=== PATIENT | female | born 1955 | race Caucasian/White ===

== ENCOUNTER → 2016-10-28 | Outpatient (CLI) | payer BC ==
[~2016-10-28] MED LIST: SYN25
[2016-10-28 10:45] LABS: ALT/SGPT 20 U/L (12-78); AST/SGOT 13 U/L (15-37); BLOOD UREA NITROGEN 17 mg/dl (7-18); BUN/CREATININE RATIO 17.3 (10-20); CALCIUM 9.6 mg/dl (8.5-10.1); CARBON DIOXIDE 27 mmol/L (21-32); CHLORIDE 101 mmol/L (98-107); CHOLESTEROL 257 mg/dl (0-200); GLUCOSE 136 mg/dl (70-99); POTASSIUM 4.3 mmol/L (3.5-5.1); SODIUM 136 mmol/L (136-145); TRIGLYCERIDES 176 mg/dl (0-150); VERY LOW DENSITY LIPOPROT CALC 35 mg/dl
[2016-10-28 10:55] LABS: ALB/GLOB RATIO 1.3 (0.9-2); ALKALINE PHOSPHATASE 79 U/L (45-117); CHOLESTEROL/HDL RATIO 3.6; HDL CHOLESTEROL 71 mg/dl; LDL CHOLESTEROL CALCULATED 151 mg/dl
[2016-10-28 10:58] LABS: ESTIMATED AVERAGE GLUCOSE 134 mg/dl; HA1C FLAG Normal (Normal)
== END | disposition home or self-care (01) ==
LOC: C.LABBC 07:35
PROVIDERS: ATTEND Family Medicine
DX: I10 Essential (primary) hypertension (principal); E03.9 Hypothyroidism, unspecified; E78.5 Hyperlipidemia, unspecified; E11.9 Type 2 diabetes mellitus without complications

== ENCOUNTER 2024-03-31 14:05 | Inpatient (IN) ==
[2024-03-31 15:39] LABS: Appearance Urine Cloudy (Clear); Bacteria Urine Automated None Seen (None Seen); Bilirubin Urine Negative (Negative); Blood Urine Negative (Negative); Color Urine Yellow; Glucose Urine UA Negative (Negative); Ketones Urine Trace (Negative); Leukocyte Esterase Urine 1+ (Negative); Mucus Urine Present (None Prsent); Nitrite Urine Negative (Negative); Protein Urine Negative (Negative); RBC Urine Automated 0-2 /hpf (0-2); Specific Gravity Urine 1.017 (1.000-1.030); Urobilinogen Urine Negative (Negative); WBC Urine Automated 0-5 /hpf (0-5); pH Urine 5.5 (4.5-7.5)
[2024-03-31 16:23] LABS: Basophils # (auto) 0.02 K/uL (0.00-0.20); Basophils % (auto) 0.2 %; Eosinophils # (auto) 0.04 K/uL (0.00-0.50); Eosinophils % (auto) 0.4 %; Hematocrit (blood only) 34.6 % (37.0-47.0); Hemoglobin 12.4 g/dl (12.0-16.0); Immature Granulocytes # (auto) 0.03 K/uL (0.01-0.20); Immature Granulocytes % (auto) 0.3 %; Lymphocytes # (auto) 1.99 K/uL (1.20-3.40); Lymphocytes % (auto) 21.1 %; Mean Corpuscular Hemoglobin 29.7 pg (25.0-34.0); Mean Corpuscular Hgb Conc 35.8 g/dL (32.0-36.0); Mean Platelet Volume 8.9 fL (9.4-12.4); Monocytes # (auto) 0.61 K/uL (0.11-0.59); Monocytes % (auto) 6.5 %; Neutrophils # (auto) 6.76 K/uL (1.40-6.50); Neutrophils % (auto) 71.5 %; Platelet Count 285 K/uL (130-400); RDW Coefficient of Variation 12.1 % (11.5-14.5); RDW Standard Deviation 36.9 fL (36.4-46.3); Red Blood Count 4.17 M/uL (4.20-5.40); White Blood Count 9.45 K/ul (4.8-10.8)
--- NOTE | 2024-03-31 16:28 | Emergency Department Note ---
Impression & Plan Hyponatremia, YARITZA (acute kidney injury) ED Provider Note NAME: YURY MICHEL AGE: 68 SEX: F : 1955 ARRIVES VIA: Walk-In INFORMANT: Patient, significant other, triage note ED PROVIDER(S): Jossue Lewis MD CHIEF COMPLAINT: Outpatient referral, low sodium MEDICAL DECISION MAKING: Patient presents due to concern for hyponatremia. Blood work was obtained and did confirm the patient was still hyponatremic. Urine and serum osmolality completed. The patient had described not taking any diuretics but the patient does take hydrochlorothiazide. Blood work shows a normal white count hemoglobin and platelet count. The patient's kidney function with creatinine 1.35. Sodium 117. Chloride is low as well as bicarb anion gap is elevated at 14. TSH is low with elevated free T4 at 1.69. Urinalysis does not show evidence of obvious infection. I did speak with the on-call hospital service Dr. Lofton and the patient was admitted to medicine service. Discussion w/ other healthcare providers: Dr. Lofton inpatient medicine service Prior /Outside records reviewed: None Differential diagnosis: Infection, dehydration, metabolic abnormality, hypo/hyperglycemia, electrolyte imbalance, anemia, UTI, pneumonia, thyroid dysfunction among others were considered. Diagnostics, as interpreted by me: ECG: Normal sinus rhythm, rate of 87, normal intervals, normal axis no ST elevations or TWI. Cardiac monitoring: An order was placed for continuous cardiac monitoring. The monitor shows a rate of 85 with sinus rhythm. Patient was placed on pulse oximetry Medical decision rules: None Imaging studies: None HPI: Patient presents due to concern for abnormal outpatient blood work and low sodium. The patient denies any chest pains or shortness of breath. The patient does not think she takes diuretics. The patient does have a history of thyroid replacement. Patient denies any sodium restriction. The patient relates that she does drink maybe 5 bottles of water daily. Patient denies any nausea vomiting or diarrhea. Patient denies any excessive urination. No recent head strike or trauma. Patient denies any fatigability. Patient states that she has had lower sodium in the past but has not been this low patient states that the blood work was read for routine purposes not for any acute complaint. PAST MEDICAL HISTORY: See Below PAST SURGICAL HISTORY: See Below SOCIAL HISTORY: See Below HOME MEDICATIONS: See Below ALLERGIES: See Below VITALS: See Below PHYSICAL EXAMINATION: GENERAL: NAD, non-toxic. EYE EXAM: Normal conjunctiva. PERRL, no anisocoria and EOM's grossly intact w/o pain. OROPHARYNX: Moist mucus membranes, grossly normal dentition. NECK: Trachea midline, no stridor. LUNGS: Clear to auscultation. Normal chest wall mechanics. HEART: NSR, no MRG. ABDOMEN: Abdomen soft, non-tender, no masses, no rebound or guarding. BACK: No CVA TTP. SKIN: No rashes and no bruising. UPPER EXTREMITIES: Upper extremities are grossly normal. LOWER EXTREMITIES: Grossly normal, no edema. NEURO EXAM: A&O x3, cranial nerves II-XII grossly intact, normal speech, moves all 4 extremities. Past Med/Surg History Problem List (Updated 04/01/24 @ 14:00 by Jossue Lewis MD) YARITZA (acute kidney injury) (Acute) YARITZA (acute kidney injury) Hyponatremia (Acute) Osteoarthritis of knees, bilateral Hx of seborrheic keratosis Osteoporosis HTN (hypertension) Type 2 diabetes mellitus (Acute) Dyslipidemia (Acute) Obesity (BMI 30-39.9) Hypothyroidism GERD (gastroesophageal reflux disease) Bilateral knee pain (Acute) Vitiligo (Acute) Medical History History of colon polyps History of COVID-19 2020- no hosp; resolved Bilateral primary osteoarthritis of knee Chronic cerebral ischemia small vessel, Brain MRI 01/2019 Surgical History Hx of colonoscopy History of total abdominal hysterectomy and bilateral salpingo-oophorectomy History of tooth extraction wisdom teeth Family History Mother Family history of diabetes mellitus Diabetes Heart disease Hypertension Sister No problems noted. Father Vasculitis Denies family history of Ovarian cancer Prostate cancer Myocardial infarction Breast cancer Lung cancer Colorectal cancer Stroke Social History Smoking Status: Never smoker Second Hand Exposure: No; Do You Dip or Chew Tobacco: No; Tobacco Cessation Education Requested by Patient: No Hx Alcohol Use: Yes Alcohol type: wine Alcohol Intake Frequency: 4 or More x per/Week Alcohol Intake Frequency Comment: glass at dinner Hx Substance Use: No Preferred Language: Georgian Communication Ability: Effective Visual Impairment: Limited Hearing Ability: Normal Sterilisation Technician Required: No Beliefs That Will Affect Care: None marital status: Current Living Situation: Spouse Current Living Situation Comment: lives at home with current occupational status: retired How many Children do You have: 1 Other Information That Helps Us Care for You: No Feels Safe at Home: Yes Safety Concerns: Feels Safe At This Time Childhood Exposure to Second-Hand Smoke: No caffeine: Yes (coffee ) Dental Care, Regularly: Yes Physical Activity Frequency: 1-2 Times per Week Physical Activity Frequency Comment: walking Seatbelt Use: always Sunscreen Use: Yes Assistive Devices: None Allergies Allergies Allergy/AdvReac Type Severity Reaction Status Date / Time No Known Drug Allergies Allergy Verified 03/07/24 09:11 Home Meds Home Medications Medication Instructions Recorded Confirmed aspirin 81 mg tablet,delayed 81 mg PO DAILY 05/30/19 03/31/24 release (Aspir-Low) docusate sodium 100 mg capsule 100 mg PO DAILY 03/07/24 03/31/24 (Colace) amlodipine 10 mg tablet 10 mg PO DAILY 03/31/24 03/31/24 atorvastatin 10 mg tablet 10 mg PO DAILY 03/31/24 03/31/24 lisinopril 30 mg tablet 30 mg PO DAILY 03/31/24 03/31/24 metformin 500 mg tablet,extended 500 mg PO UD 03/31/24 03/31/24 release 24 hr Previous Rx's Medication Instructions Recorded omeprazole 20 mg capsule,delayed 20 mg PO DAILY #90 caps 09/14/23 release levothyroxine 88 mcg tablet 88 mcg PO DAILY #90 tabs 10/11/23 hydrochlorothiazide 12.5 mg tablet 12.5 mg PO DAILY #90 tabs 10/28/23 alendronate 70 mg tablet 70 mg PO .weekly #13 tabs 01/27/24 semaglutide 1 mg/dose (4 mg/3 mL) 1 mg (0.75 mL) subcut .weekly #3 mL 03/22/24 subcutaneous pen injector Results & Data (ED) Vital Signs Vital Signs - 24 hr 03/31/24 14:28 03/31/24 15:50 03/31/24 15:54 Temperature 36.3 C L Temperature Source Temporal Artery Scan Pulse Rate 83 72 74 Pulse Rate from SpO2 Sensor Respiratory Rate 14 23 Blood Pressure 109/80 Blood Pressure Mean 89 Pulse Oximetry 99 Oxygen Delivery Method Room Air Sepsis New/Unexplained Change in Mental Status No Sepsis Action Taken by Nursing No Action Required 03/31/24 16:06 03/31/24 16:27 03/31/24 16:29 Temperature Temperature Source Pulse Rate 71 71 Pulse Rate from SpO2 Sensor 72 72 Respiratory Rate 16 18 Blood Pressure 140/79 Blood Pressure Mean 93 Pulse Oximetry 99 100 Oxygen Delivery Method Sepsis New/Unexplained Change in Mental Status Sepsis Action Taken by Nursing 03/31/24 17:06 Temperature Temperature Source Pulse Rate 71 Pulse Rate from SpO2 Sensor 71 Respiratory Rate 17 Blood Pressure Blood Pressure Mean Pulse Oximetry 100 Oxygen Delivery Method Sepsis New/Unexplained Change in Mental Status Sepsis Action Taken by Halfway Medications Current Medication List: was personally reviewed by me Laboratory Data Attestation: I reviewed the patient's lab results. 04/01/24 04:18 04/01/24 12:14 Lab Results 03/31/24 03/31/24 Range/Units 15:10 16:04 WBC 9.45 (4.8-10.8) K/ul RBC 4.17 L (4.20-5.40) M/uL Hgb 12.4 (12.0-16.0) g/dl Hct 34.6 L (37.0-47.0) % MCV 83.0 (80.0-100.0) fL MCH 29.7 (25.0-34.0) pg MCHC 35.8 (32.0-36.0) g/dL RDW Std Deviation 36.9 (36.4-46.3) fL RDW Coeff of Katia 12.1 (11.5-14.5) % Plt Count 285 (130-400) K/uL MPV 8.9 L (9.4-12.4) fL Immature Gran % (Auto) 0.3 % Neut % (Auto) 71.5 % Lymph % (Auto) 21.1 % Swisher % (Auto) 6.5 % Eos % (Auto) 0.4 % Baso % (Auto) 0.2 % Neut # (Auto) 6.76 H (1.40-6.50) K/uL Lymph # (Auto) 1.99 (1.20-3.40) K/uL Swisher # (Auto) 0.61 H (0.11-0.59) K/uL Eos # (Auto) 0.04 (0.00-0.50) K/uL Baso # (Auto) 0.02 (0.00-0.20) K/uL Immature Gran # (Auto) 0.03 (0.01-0.20) K/uL Sodium 117 L* (136-145) mmol/L Potassium 3.7 (3.5-5.1) mmol/L Chloride 83 L (98-107) mmol/L Carbon Dioxide 20 L (21-32) mmol/L Anion Gap 14 H (3-11) BUN 23 (6-23) mg/dl Creatinine 1.35 H (0.6-1.2) mg/dl Est Cr Clr Drug Dosing 36.7 ml/min Est GFR ( Amer) 46.0 ml/min Est GFR (Non-Af Amer) 39.7 ml/min BUN/Creatinine Ratio 17.0 (10-20) Glucose 113 H (70-99(Fasting)) mg/dl Osmolality 249 L (280-300) mOsm/kg Calcium 10.2 (8.6-10.3) mg/dl Magnesium 1.7 (1.7-2.4) mg/dl Total Bilirubin 0.7 (0.2-1.0) mg/dl AST 14 (13-39) U/L ALT 13 (7-52) U/L Alkaline Phosphatase 67 (34-104) U/L Total Protein 7.7 (6.0-8.3) gm/dl Albumin 4.9 (3.4-5.0) gm/dl Globulin 2.8 (2.5-4.0) gm/dl Albumin/Globulin Ratio 1.8 (0.9-2) TSH 0.204 L (0.300-4.500) uIu/ml Free T4 1.69 H (0.61-1.60) ng/dl Urine Color Yellow Urine Appearance Cloudy A (Clear) Urine pH 5.5 (4.5-7.5) Ur Specific [place] 1.017 (1.000-1.030) Urine Protein Negative (Negative) Urine Glucose (UA) Negative (Negative) Urine Ketones Trace H (Negative) Urine Blood Negative (Negative) Urine Nitrite Negative (Negative) Urine Bilirubin Negative (Negative) Urine Urobilinogen Negative (Negative) Ur Leukocyte Esterase 1+ H (Negative) Urine WBC (Auto) 0-5 (0-5) /hpf Urine RBC (Auto) 0-2 (0-2) /hpf U Hyaline Cast (Auto) 11-20 H (0-2) /lpf U Epithel Cells (Auto) 6-10 H (0-2) /hpf Urine Bacteria (Auto) None Seen (None Seen) Urine Mucus Present A (None Prsent) Urine Osmolality 498 L (500-800) mOsm/kg Ur Random Sodium 70 mmol/L Administered Medications Amlodipine Besylate (Amlodipine Besylate 5 Mg Tab) 10 mg PO QAM [facility] Stop: 05/01/24 08:59 Last Admin: 04/01/24 08:47 Dose: 10 mg Documented By: BERNARDO Aspirin (Aspirin 81 Mg Ectab) 81 mg PO DAILY AZALIA Stop: 05/01/24 08:59 Last Admin: 04/01/24 08:47 Dose: 81 mg Documented By: BERNARDO Atorvastatin Calcium (Atorvastatin 10 Mg Tab) 10 mg PO DAILY AZALIA Stop: 05/01/24 08:59 Last Admin: 04/01/24 08:47 Dose: 10 mg Documented By: BERNARDO Insulin Aspart (Insulin Aspart Per Unit Charge) 0 units SC ACHS [facility] Stop: 04/30/24 20:59 Last Admin: 04/01/24 11:27 Dose: Not Given Documented By: Admin: 04/01/24 07:47 Dose: Not Given Documented By: Admin: 03/31/24 21:48 Dose: Not Given Documented By: HAMILTON Co-signed By: AISHA Levothyroxine Sodium (Levothyroxine Sodium 88 Mcg Tablet) 88 mcg PO DAILYBB [facility] Stop: 05/01/24 06:29 Last Admin: 04/01/24 05:09 Dose: 88 mcg Documented By: HAMILTON Sodium Chloride (Sodium Chloride 1 Gm Tablet) 1 gm PO BID [facility] Stop: 04/30/24 20:59 Last Admin: 04/01/24 08:47 Dose: 1 gm Documented By: Admin: 03/31/24 21:58 Dose: 1 gm Documented By: HAMILTON Discontinued Medications Sodium Chloride (Hypertonic Saline 3%) 50 mls @ 300 mls/hr IV .Q10M ONE; Protocol Stop: 03/31/24 18:42 Last Infusion: 03/31/24 19:36 Dose: Infused Documented By: SKKiet Co-signed By: TERRY Admin: 03/31/24 19:24 Dose: 300 mls/hr Documented By: SKKiet Co-signed By: DML Sodium Chloride (Hypertonic Saline 3%) 50 mls @ 300 mls/hr IV .Q10M ONE; Protocol Stop: 03/31/24 21:07 Last Infusion: 03/31/24 22:21 Dose: Infused Documented By: TKWest Co-signed By: AJ Admin: 03/31/24 21:58 Dose: 300 mls/hr Documented By: TKB Co-signed By: NAB Sodium Chloride (Hypertonic Saline 3%) 100 mls @ 600 mls/hr IV .Q10M ONE; Protocol Stop: 04/01/24 10:28 Last Admin: 04/01/24 10:37 Dose: 600 mls/hr Documented By: BERNARDO Co-signed By: DEEPIKA Discharge Plan Visit Data Chief Complaint: Referred by Doctor Stated Complaint: LOW SODIUM, KIDNEY ISSUE, REF BY DOC ED Provider: Jossue Lewis Discharge Problem: Hyponatremia, YARITZA (acute kidney injury) Patient Disposition: Admitted As Inpatient Discharge Instructions Interventions: ED Discharge Assessment Last Done: 03/31/24 20:35
[2024-03-31 16:58] LABS: Thyroid Stimulating Hormone 0.204 uIu/ml (0.300-4.500)
[2024-03-31 17:44] LABS: Albumin Globulin Ratio 1.8 (0.9-2); Albumin Level 4.9 gm/dl (3.4-5.0); Bilirubin,Total 0.7 mg/dl (0.2-1.0); Calcium 10.2 mg/dl (8.6-10.3); Creatinine Clr Calc Pharmacy 36.7 ml/min; Est GFR (Non-African American) 39.7 ml/min; Globulin 2.8 gm/dl (2.5-4.0); Magnesium 1.7 mg/dl (1.7-2.4); Potassium 3.7 mmol/L (3.5-5.1); Total Protein 7.7 gm/dl (6.0-8.3)
--- NOTE | 2024-03-31 18:06 | History & Physical Report ---
Date of Service March 31, 2024 Assessment & Plan (1) Hyponatremia: Plan: Aster is a 68-year-old female with history of type 2 diabetes, hypertension, GERD who presents on referral from outpatient blood work for low sodium level and elevated creatinine. Patient is with polydipsia as outpatient, sodium last 132 09/2023. Potassium borderline, chloride low. Bicarb low. Serum osmolality low at 249, urine is dilute with an osmolality 498 urine sodium is pending. Gl ucose is 113. Asymptomatic severe hyponatremia Serum osmolality 249, urine osmolality low at 498, urine sodium pending Last sodium level was over 6 months ago Patient with polydipsia as outpatient Asymptomatic, was referred to the ER after she had routine outpatient blood work Hydrochlorothiazide held BMP every 4 hours 50 cc 3% saline and continue to trend. Goal change of no more than 8 mEq per 24 hours, if rises more than 10 mEq in 24 hours give D5 250-500 cc bolus to reverse and recheck BMP Patient is not volume contracted. She has been peeing generally normally and feels she can empty her bladder, but does have an YARITZA. Denies NSAID use. Is on lisinopril, no hypotension. She is not overtly volume overloaded or with pulmonary edema, renal bladder ultrasound has been ordered (2) YARITZA (acute kidney injury): Plan: YARITZA No evidence of volume contraction, increased fluid intake Hydrochlorothiazide held Lisinopril held (3) Type 2 diabetes mellitus: Plan: Metformin held Patient is on weekly Ozempic. Basal bolus deferred. SSI ordered Goal [id number] (4) HTN (hypertension): Plan: HCTZ, lisinopril held for YARITZA (5) Hypothyroidism: Plan: Continue Synthroid. TSH slightly low on admission, free T4 pending (6) GERD (gastroesophageal reflux disease): Plan: Continue PPI Plan DVT prophylaxis: Heparin Disposition: PCU CODE STATUS: Full code Diet: fluid restricted, DM2 History of Present Illness Primary Care Provider: Eladio Vela, DO To proceed at the bedside. She reports she feels well, has had chronic hyponatremia in the past and was following up with outpatient labs when she was directed to go to the ER for very low sodium levels. She reports she feels well and has not felt like she is outside of her normal state of health. Denies fever, chills, sweats. No lightheadedness or dizziness. She has been peeing normally with no hesitancy, increased frequency, oliguria, or difficulty voiding. She drinks 4 to 512 ounce bottles of water a day this has not changed recently. She has no known history of cancer. She has not had any weakness, confusion, abdominal pain, nausea/vomiting/diarrhea. She reports her appetite has been slightly decrease since being on Ozempic, but is also not with minimal or poor intake feels she eats normally and has adequate p.o. intake. She is on hydrochlorothiazide which she last took this morning. BSG generally well- controlled last A1c 6.0. Reports she was she did not come into the hospital as she is planning on going on a cruise next week but is aware that her sodium levels are dangerously low and must be corrected slowly. No other questions or concerns at time of bedside visit Medical History: Reviewed Medications: Reviewed Surgical History: Reviewed Family history: Reviewed Allergies: Reviewed Social History: Social ETOH, 0-1 glass of wine per day. No tobacco Code Status: Full Allergies Allergy/AdvReac Type Severity Reaction Status Date / Time No Known Drug Allergies Allergy Verified 03/07/24 09:11 Home Medications Medication Instructions Recorded Confirmed Type aspirin 81 mg tablet,delayed 81 mg PO DAILY 05/30/19 03/07/24 History release (Aspir-Low) lisinopril 30 mg tablet See Rx Instructions .Route 04/05/23 03/07/24 Rx .COMPLEX #90 tabs metformin 500 mg tablet,extended 500 mg PO DAILY #90 tabs 04/05/23 03/07/24 Rx release 24 hr amlodipine 10 mg tablet See Rx Instructions .Route 05/11/23 03/07/24 Rx .COMPLEX #90 tabs omeprazole 20 mg capsule,delayed 20 mg PO DAILY #90 caps 09/14/23 03/07/24 Rx release levothyroxine 88 mcg tablet 88 mcg PO DAILY #90 tabs 10/11/23 03/07/24 Rx hydrochlorothiazide 12.5 mg tablet 12.5 mg PO DAILY #90 tabs 10/28/23 03/07/24 Rx atorvastatin 10 mg tablet See Rx Instructions .Route 12/24/23 03/07/24 Rx .COMPLEX #90 tabs alendronate 70 mg tablet 70 mg PO .weekly #13 tabs 01/27/24 03/07/24 Rx docusate sodium 100 mg capsule 100 mg PO DAILY 03/07/24 03/07/24 History (Colace) semaglutide 1 mg/dose (4 mg/3 mL) 1 mg (0.75 mL) subcut .weekly #3 mL 03/22/24 Rx subcutaneous pen injector Past Med/Surg History Problem List (Updated 03/31/24 @ 18:05 by Kavon Lofton MD) YARITZA (acute kidney injury) Hyponatremia Osteoarthritis of knees, bilateral Hx of seborrheic keratosis Osteoporosis HTN (hypertension) Type 2 diabetes mellitus (Acute) Dyslipidemia (Acute) Obesity (BMI 30-39.9) Hypothyroidism GERD (gastroesophageal reflux disease) Bilateral knee pain (Acute) Vitiligo (Acute) Medical History History of colon polyps History of COVID-19 2020- no hosp; resolved Bilateral primary osteoarthritis of knee Chronic cerebral ischemia small vessel, Brain MRI 01/2019 Surgical History Hx of colonoscopy History of total abdominal hysterectomy and bilateral salpingo-oophorectomy History of tooth extraction wisdom teeth Family History Mother Family history of diabetes mellitus Diabetes Heart disease Hypertension Sister No problems noted. Father Vasculitis Denies family history of Ovarian cancer Prostate cancer Myocardial infarction Breast cancer Lung cancer Colorectal cancer Stroke Social History Smoking Status: Never smoker Second Hand Exposure: No; Do You Dip or Chew Tobacco: No; Hx Alcohol Use: Yes Alcohol type: wine Alcohol Intake Frequency: 4 or More x per/Week Alcohol Intake Frequency Comment: glass at dinner Hx Substance Use: No Preferred Language: Finnish Communication Ability: Effective Visual Impairment: Limited Hearing Ability: Normal Education Program Manager Required: No Beliefs That Will Affect Care: None marital status: Current Living Situation: Spouse current occupational status: retired How many Children do You have: 1 Feels Safe at Home: Yes Childhood Exposure to Second-Hand Smoke: No caffeine: Yes (coffee ) Dental Care, Regularly: Yes Physical Activity Frequency: 1-2 Times per Week Physical Activity Frequency Comment: walking Seatbelt Use: always Sunscreen Use: Yes Assistive Devices: Contacts and Glasses Physical Exam Physical Exam: General: A&Ox3. NAD. Cooperative. HEENT: Atraumatic, normocephalic. Pulm: CTAB A&P. -wheezes, -rales, -rhonchi. Symmetrical chest rise. No increased work of breathing. No respiratory distress. Cardiac: RRR, -mrg. Radial pulses intact and symmetrical. Abdominal: Nontender, nondistended, soft. BS present. CRANIAL NERVES: II: Pupils equal and reactive, no relative afferent pupillary defect, no VF cuts III, IV, : EOM intact, no gaze preference or deviation, no nystagmus. V: normal sensation in V1, V2, and V3 segments bilaterally VII: no asymmetry, no nasolabial fold flattening VIII: normal hearing to speech IX, X: normal palatal elevation, no uvular deviation XI: 5/5 head turn and 5/5 shoulder shrug bilaterally XII: midline tongue protrusion MOTOR: RUE: 5/5 community support associate strength LUE: 5/5 community support associate strength RLE: 5/5 ankle dorsiflexion/plantarflexion LLE: 5/5 t, ankle dorsiflexion/plantarflexion SENSORY: Normal to touch in upper and lower extremities without deficit or asymmetry Results & Data Results & Data Vital Signs (Past 12 Hours) Vital Signs Temp Pulse Resp BP Pulse Ox O2 Del Method 03/31/24 17:06 71 17 100 03/31/24 16:29 140/79 03/31/24 16:27 71 18 100 03/31/24 16:06 71 16 99 03/31/24 15:54 74 23 03/31/24 15:50 72 03/31/24 14:28 36.3 C L 83 14 109/80 99 Room Air PG Care Time/CCT Total # of Minutes Spent Total Time Spent with Patient: Total time spent is greater than 50% in coordination of care (as documented) at patient's floor/unit and/or counseling patient: Coding Level of Care Code 02238 INT INP/OBS CARE 3/75MIN Diagnoses Hyponatremia E87.1 YARITZA (acute kidney injury) N17.9 Type 2 diabetes mellitus E11.9 HTN (hypertension) I10 Hypothyroidism E03.9 GERD (gastroesophageal reflux disease) K21.9
[2024-03-31 18:29] LABS: T4 Free Thyroxine 1.69 ng/dl (0.61-1.60)
[2024-03-31] MEDS ORDERED: ACETAMINOPHEN 325 MG TAB PO PRN (18:33)
[2024-03-31] MEDS ORDERED: ONDANSETRON INJ 2 MG/ML 2 ML VIAL IV PRN (18:33)
[2024-03-31] MEDS ORDERED: STAT IV/IM STA ×2 (18:33→20:58)
[2024-03-31] MEDS: SODIUM CHLORIDE 3 % 50 ML IV ONE ×2 (19:24→21:58)
[2024-03-31] MEDS ORDERED: CARBOHYDRATES FOR HYPOGLYCEMIA PO PRN (20:54)
[2024-03-31] MEDS ORDERED: DEXTROSE 50% 50 ML SYRINGE IV PRN (20:54)
[2024-03-31] MEDS ORDERED: GLUCOSE 40% GEL 15 GM TUBE PO PRN (20:54)
[2024-03-31] MEDS ORDERED: GLUCOSE 10 TAB/TUBE PO PRN (20:54)
[2024-03-31] MEDS ORDERED: GLUCAGON FOR INJ 1 MG VIAL SQ PRN (20:54)
[2024-03-31 20:57] LABS: BUN Creatinine Ratio 18.9 (10-20); Calcium 9.7 mg/dl (8.6-10.3); Creatinine Clr Calc Pharmacy 40.6 ml/min; Est GFR (Non-African American) 44.8 ml/min
--- NOTE | 2024-03-31 21:03 | Ultrasound Report ---
US renal/blad retro comp CLINICAL HISTORY: YARITZA, obstruction eval TECHNIQUE: Multiple sonographic real-time images of the kidneys and bladder were obtained. COMPARISON: Comparison is made to CT abdomen pelvis 04/26/2012 FINDINGS: The right kidney measures 9.7 cm in length, and the left kidney measures 10.3 cm in length. The right kidney is normal in size, contour, cortical thickness, and echogenicity. No hydronephrosis is identified. Partial evaluation of calcification lying outside the kidney. This measures approximat magui 1 cm in diameter. The left kidney is normal in size, contour, cortical thickness and echogenicity. No hydronephrosis i s identified. No renal lesion is identified. The bladder is partially distended. Bilateral jets are seen. IMPRESSION: 1. No evidence of hydronephrosis. 2. Opacification in the right upper quadrant outside the contour of the right kidney is nonspecific and may represent calcified adrenal nodule or less likely a hepatic calcification. No corresponding l esion is seen on prior CT abdomen pelvis. ACT 112: Negative or not required by law. Electronically signed by: El Suarez M.D. 03/31/2024 9:02 PM
[2024-03-31] MEDS: INSULIN ASPART PER UNIT CHARGE SC SCH (21:48)
[2024-03-31] MEDS: SODIUM CHLORIDE 1 GM TABLET PO SCH (21:58)
--- NOTE | 2024-03-31 22:24 | Electrocardiogram Report ---
Test Reason : Blood Pressure : / mmHG Vent. Rate : 087 BPM Atrial Rate : 087 BPM P-R Int : 168 ms QRS Dur : 082 ms QT Int : 356 ms P-R-T Axes : 038 -11 049 degrees QTc Int : 428 ms Normal sinus rhythm Minimal voltage criteria for LVH, may be normal variant ( R in aVL ) Borderline ECG No previous ECGs available Confirmed by Adiel Ponce ([id number]) on 03/31/2024 10:24:45 PM Referred By: Confirmed By:Adiel Ponce
[2024-04-01 01:23] LABS: BUN Creatinine Ratio 17.7 (10-20); Calcium 9.5 mg/dl (8.6-10.3); Creatinine Clr Calc Pharmacy 43.6 ml/min; Est GFR (Non-African American) 49.2 ml/min; Phosphorus 3.6 mg/dl (2.5-4.9); Potassium 3.7 mmol/L (3.5-5.1)
[2024-04-01 04:42] LABS: Basophils # (auto) 0.01 K/uL (0.00-0.20); Basophils % (auto) 0.1 %; Eosinophils # (auto) 0.04 K/uL (0.00-0.50); Eosinophils % (auto) 0.5 %; Hematocrit (blood only) 30.5 % (37.0-47.0); Hemoglobin 11.2 g/dl (12.0-16.0); Immature Granulocytes # (auto) 0.02 K/uL (0.01-0.20); Immature Granulocytes % (auto) 0.3 %; Lymphocytes # (auto) 1.65 K/uL (1.20-3.40); Lymphocytes % (auto) 21.7 %; Mean Corpuscular Hemoglobin 29.9 pg (25.0-34.0); Mean Corpuscular Hgb Conc 36.7 g/dL (32.0-36.0); Mean Corpuscular Volume 81.6 fL (80.0-100.0); Mean Platelet Volume 8.9 fL (9.4-12.4); Monocytes # (auto) 0.61 K/uL (0.11-0.59); Neutrophils # (auto) 5.29 K/uL (1.40-6.50); Neutrophils % (auto) 69.4 %; Platelet Count 218 K/uL (130-400); RDW Coefficient of Variation 11.7 % (11.5-14.5); RDW Standard Deviation 34.5 fL (36.4-46.3); Red Blood Count 3.74 M/uL (4.20-5.40); White Blood Count 7.62 K/ul (4.8-10.8)
[2024-04-01 05:02] LABS: BUN Creatinine Ratio 19.4 (10-20); Calcium 9.4 mg/dl (8.6-10.3); Creatinine Clr Calc Pharmacy 50.3 ml/min; Est GFR (African American) 67.7 ml/min; Est GFR (Non-African American) 58.4 ml/min; Potassium 3.8 mmol/L (3.5-5.1)
[2024-04-01] MEDS: LEVOTHYROXINE SODIUM 88 MCG TABLET PO SCH (05:09)
[2024-04-01] MEDS: ATORVASTATIN 10 MG TAB PO SCH (08:47)
[2024-04-01] MEDS: amLODIPine BESYLATE 5 MG TAB PO SCH (08:47)
[2024-04-01] MEDS: ASPIRIN 81 MG ECTAB PO SCH (08:47)
[2024-04-01 08:56] LABS: BUN Creatinine Ratio 15.7 (10-20); Creatinine Clr Calc Pharmacy 48.4 ml/min; Est GFR (African American) 64.5 ml/min; Est GFR (Non-African American) 55.7 ml/min; Potassium 4.4 mmol/L (3.5-5.1)
[2024-04-01] MEDS ORDERED: STAT IV/IM STA ×3 (10:19→22:53)
[2024-04-01] MEDS: SODIUM CHLORIDE 3 % 100 ML IV ONE ×2 (10:37→23:39)
--- NOTE | 2024-04-01 12:11 | Nephrology Consultation ---
Date of Consultation April 01, 2024 Assessment & Plan (1) Hyponatremia: (2) YARITZA (acute kidney injury): (3) HTN (hypertension): (4) Type 2 diabetes mellitus: (5) Hypothyroidism: Plan 68-year-old female with history of hypertension, diabetes, chronic mild hyponatremia with serum sodium 1 31-1 33, on Ozempic, lisinopril and hydrochlorothiazide, admitted to the hospital with routine outpatient lab showing acute hyponatremia with serum sodium 119. Urine osmolality 450. Receiv ed 3% saline overnight and started on oral salt tablet but sodium stayed low at 118. Admission lab was also notable for YARITZA creatinine was 1.4 which rapidly improved down to baseline of 0.9-1.0. Other electrolyte acceptable. Vital signs stable. Hydrochlorothiazide has been on hold since admission. Workup was otherwise unremarkable including chest x-ray, urinalysis renal ultrasound. No personal history of malignancy. Never smoker. No clear explanation for hyponatremia except being on hydrochlorothiazide and some component of SIADH. -- Will give 3% saline 100 mL bolus and repeat sodium and continue to monitor sodium every 4 hours. Aim for maximum correction to 128 in next 24 hours. --In future avoid thiazide type diuretics and consider loop diuretics if needed -- Limit free water intake to less than 1500 mL/day avoid excessive alcohol. Thank you for allowing me to participate in your patient's care. It was a pleasure to see Jeanne. History of Present Illness Reason for Consultation: Hyponatremia Attending Physician: Svetlana Palumbo MD History of Present Illness Ms. Jeanne Blum is a 68 yo with past medical history significant for hypertension, diabetes admitted to the hospital with outpatient routine labs showing acute hyponatremia. Nephrology consult was requested for management of hyponatremia. EMR records are reviewed in detail during patient's visit. Aster presented to ER yesterday after routine outpatient lab prior to an upcoming follow-up showing serum sodium 119. She has been otherwise feeling well, asymptomatic and has not felt like she is outside of her normal state of health. Denies fever, chills, sweats. No lightheadedness or dizziness. Reports urinating normally with no hesitancy, increased frequency, oliguria, or difficulty voiding. She drinks about 2 L of water a day. She has no known history of cancer. She is up-to-date on age-appropriate screening. She has not had any weakness, confusion, abdominal pain, nausea/vomiting/diarrhea. She reports her appetite has been slightly decrease since being on Ozempic since October 2023 and had lost almost 25 pounds but feels she eats normally and has adequate p.o. intake. She was on hydrochlorothiazide and lisinopril which is now on hold. She is on metformin which was also on hold since admission. History of hypothyroidism, has been on levothyroxine. No history of hypertension or adrenal insufficiency. BSG generally well-controlled last A1c 6.0. She drinks 1 glasses of wine a day. Never smoker. Record review showed she historically has mild hyponatremia serum sodium around 131-133. On admission sodium was 119 and she was initially given 50 mill of 3% saline but sodium dropped to 115 and percent saline was repeated twice overnight however this morning sodium stayed low at 118. She was also started on salt tablet on admission. Admission lab was also notable for YARITZA, creatinine was 1.4 which rapidly improved back down to her baseline creatinine of around 0.9-1.0. Urine osmolality was around 450 and urine sodium was elevated. Urinalysis was otherwise unremarkable. Renal ultrasound unremarkable. Blood pressure staying well-controlled on amlodipine, off of hydrochlorothiazide. No history of coronary artery disease, CHF. Diabetes seems well-controlled, no significant proteinuria. Overall she otherwise feels well and denies any symptoms. Allergies Allergy/AdvReac Type Severity Reaction Status Date / Time No Known Drug Allergies Allergy Verified 03/07/24 09:11 Home Medications Medication Instructions Recorded Confirmed Type aspirin 81 mg tablet,delayed 81 mg PO DAILY 05/30/19 03/31/24 History release (Aspir-Low) omeprazole 20 mg capsule,delayed 20 mg PO DAILY #90 caps 09/14/23 03/31/24 Rx release levothyroxine 88 mcg tablet 88 mcg PO DAILY #90 tabs 10/11/23 03/31/24 Rx hydrochlorothiazide 12.5 mg tablet 12.5 mg PO DAILY #90 tabs 10/28/23 03/31/24 Rx alendronate 70 mg tablet 70 mg PO .weekly #13 tabs 01/27/24 03/31/24 Rx docusate sodium 100 mg capsule 100 mg PO DAILY 03/07/24 03/31/24 History (Colace) semaglutide 1 mg/dose (4 mg/3 mL) 1 mg (0.75 mL) subcut .weekly #3 mL 03/22/24 03/31/24 Rx subcutaneous pen injector amlodipine 10 mg tablet 10 mg PO DAILY 03/31/24 03/31/24 History atorvastatin 10 mg tablet 10 mg PO DAILY 03/31/24 03/31/24 History lisinopril 30 mg tablet 30 mg PO DAILY 03/31/24 03/31/24 History metformin 500 mg tablet,extended 500 mg PO UD 03/31/24 03/31/24 History release 24 hr Patient History Medical History History of colon polyps History of COVID-19 2020- no hosp; resolved Bilateral primary osteoarthritis of knee Chronic cerebral ischemia small vessel, Brain MRI 01/2019 Surgical History Hx of colonoscopy History of total abdominal hysterectomy and bilateral salpingo-oophorectomy History of tooth extraction wisdom teeth Family History Mother Family history of diabetes mellitus Diabetes Heart disease Hypertension Sister No problems noted. 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 Beliefs That Will Affect Care: None marital status: Current Living Situation: Spouse Current Living Situation Comment: lives at home with current occupational status: retired How many Children do You have: 1 Other Information That Helps Us Care for You: No Feels Safe at Home: Yes Safety Concerns: Feels Safe At This Time Childhood Exposure to Second-Hand Smoke: No caffeine: Yes (coffee ) Dental Care, Regularly: Yes Physical Activity Frequency: 1-2 Times per Week Physical Activity Frequency Comment: walking Seatbelt Use: always Sunscreen Use: Yes Assistive Devices: None Review of Systems Review of Systems: Detailed review of system was done and pertinent positives and negatives are mentioned above. Physical Exam Constitutional: WD/WN, vitals as above no acute distress Eyes: + anicteric sclerae Neck: trachea midline, no thyromegaly Respiratory: Auscultation: lungs clear to auscultation bilaterally Cardiovascular: RRR, no murmur, no edema Gastrointestinal (Abdomen): Inspection/Auscultation: abdomen normal to inspection Percussion/Palpation: abdomen soft; abdomen nontender Musculoskeletal: Extremities: extremities normal to inspection Skin: no rashes, warm and dry Neurologic: no focal motor deficits and not confused Psychiatric: Orientation: alert and oriented x 3 Affect: euthymic affect Results & Data Vital Signs (Past 12 Hours) Vital Signs Temp Pulse Pulse Resp BP Pulse Ox O2 Del Method 04/01/24 08:00 36.5 C 87 18 125/79 96 Room Air 04/01/24 07:01 68 04/01/24 03:04 36.5 C 78 17 111/65 97 Room Air PG Care Time/CCT Total # of Minutes Spent Total Time Spent with Patient: Total time spent is greater than 50% in coordination of care (as documented) at patient's floor/unit and/or counseling patient: Coding Level of Care Code 72338 INT INP/OBS CARE 3/75MIN Diagnoses Hyponatremia E87.1 YARITZA (acute kidney injury) N17.9 HTN (hypertension) I10 Type 2 diabetes mellitus E11.9 Hypothyroidism E03.9
[2024-04-01 12:54] LABS: BUN Creatinine Ratio 17.3 (10-20); Calcium 9.1 mg/dl (8.6-10.3); Creatinine Clr Calc Pharmacy 50.4 ml/min; Est GFR (African American) 67.7 ml/min; Est GFR (Non-African American) 58.4 ml/min; Potassium 3.7 mmol/L (3.5-5.1)
--- NOTE | 2024-04-01 14:06 | Hospitalist Progress Note ---
Date of Service April 01, 2024 Assessment & Plan (1) Hyponatremia: Plan: Aster is a 68-year-old female with history of type 2 diabetes, hypertension, GERD who presents on referral from outpatient blood work for low sodium level and elevated creatinine. Patient is with polydipsia as outpatient, sodium last 132 09/2023. Asymptomatic severe hyponatremia Patient with polydipsia as outpatient Asymptomatic, was referred to the ER after she had routine outpatient blood work Hydrochlorothiazide held. 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 Basal bolus deferred. SSI ordered Goal [id number] (4) HTN (hypertension): Plan: HCTZ, lisinopril held for recent YARITZA (5) Hypothyroidism: Plan: Continue Synthroid. TSH slightly low on admission, free T4 pending (6) GERD (gastroesophageal reflux disease): Plan: Continue PPI Plan DVT prophylaxis: Heparin Disposition: PCU CODE STATUS: Full code Diet: fluid restricted, DM2 Admission and Anticipated Discharge Date Admission Date: March 31, 2024 Subjective Patient feels well overall. Denies chest pain or shortness of breath. She has no complaints at all. Review of Systems Review of Systems: All systems reviewed & are unremarkable except as noted in Subjective Physical Exam Physical Exam: General: Awake, conversant Heart: S1, S2/regular rate and rhythm, no murmur rubs or gallops Lungs: Clear to auscultation bilaterally. Normal effort Abdomen: Soft/nontender/nondistended. No hepatosplenomegaly Extremities: No clubbing/cyanosis. No edema Behavior: Appropriate, cooperative Results & Data Results & Data Vital Signs (Past 12 Hours) Vital Signs Temp Pulse Pulse Resp BP Pulse Ox O2 Del Method 04/01/24 12:27 36.6 C 88 20 118/74 97 Room Air 04/01/24 08:00 36.5 C 87 18 125/79 96 Room Air 04/01/24 07:01 68 04/01/24 03:04 36.5 C 78 17 111/65 97 Room Air Laboratory Results Abnormal lab results 03/31/24 03/31/24 03/31/24 Range/Units 15:10 16:04 20:06 RBC 4.17 L (4.20-5.40) M/uL Hgb (12.0-16.0) g/dl Hct 34.6 L (37.0-47.0) % MCHC (32.0-36.0) g/dL RDW Std Deviation (36.4-46.3) fL MPV 8.9 L (9.4-12.4) fL Neut # (Auto) 6.76 H (1.40-6.50) K/uL [place] # (Auto) 0.61 H (0.11-0.59) K/uL Sodium 117 L* 115 L* (136-145) mmol/L Chloride 83 L 83 L (98-107) mmol/L Carbon Dioxide 20 L (21-32) mmol/L Anion Gap 14 H (3-11) Creatinine 1.35 H 1.22 H (0.6-1.2) mg/dl Glucose 113 H 111 H (70-99(Fasting)) mg/dl POC Glucose (70-99) mg/dl Osmolality 249 L (280-300) mOsm/kg TSH 0.204 L (0.300-4.500) uIu/ml Free T4 1.69 H (0.61-1.60) ng/dl Urine Appearance Cloudy A (Clear) Urine Ketones Trace H (Negative) Ur Leukocyte Esterase 1+ H (Negative) U Hyaline Cast (Auto) 11-20 H (0-2) /lpf U Epithel Cells (Auto) 6-10 H (0-2) /hpf Urine Mucus Present A (None Prsent) Urine Osmolality 498 L (500-800) mOsm/kg 03/31/24 04/01/24 04/01/24 Range/Units 20:53 00:33 04:18 RBC 3.74 L (4.20-5.40) M/uL Hgb 11.2 L (12.0-16.0) g/dl Hct 30.5 L (37.0-47.0) % MCHC 36.7 H (32.0-36.0) g/dL RDW Std Deviation 34.5 L (36.4-46.3) fL MPV 8.9 L (9.4-12.4) fL Neut # (Auto) (1.40-6.50) K/uL [place] # (Auto) 0.61 H (0.11-0.59) K/uL Sodium 116 L* 118 L* (136-145) mmol/L Chloride 85 L 88 L (98-107) mmol/L Carbon Dioxide (21-32) mmol/L Anion Gap (3-11) Creatinine (0.6-1.2) mg/dl Glucose 106 H 106 H (70-99(Fasting)) mg/dl POC Glucose 112 H (70-99) mg/dl Osmolality (280-300) mOsm/kg TSH (0.300-4.500) uIu/ml Free T4 (0.61-1.60) ng/dl Urine Appearance (Clear) Urine Ketones (Negative) Ur Leukocyte Esterase (Negative) U Hyaline Cast (Auto) (0-2) /lpf U Epithel Cells (Auto) (0-2) /hpf Urine Mucus (None Prsent) Urine Osmolality (500-800) mOsm/kg 04/01/24 04/01/24 04/01/24 Range/Units 07:35 08:13 11:22 RBC (4.20-5.40) M/uL Hgb (12.0-16.0) g/dl Hct (37.0-47.0) % MCHC (32.0-36.0) g/dL RDW Std Deviation (36.4-46.3) fL MPV (9.4-12.4) fL Neut # (Auto) (1.40-6.50) K/uL [place] # (Auto) (0.11-0.59) K/uL Sodium 118 L* (136-145) mmol/L Chloride 86 L (98-107) mmol/L Carbon Dioxide (21-32) mmol/L Anion Gap (3-11) Creatinine (0.6-1.2) mg/dl Glucose 124 H (70-99(Fasting)) mg/dl POC Glucose 114 H 106 H (70-99) mg/dl Osmolality (280-300) mOsm/kg TSH (0.300-4.500) uIu/ml Free T4 (0.61-1.60) ng/dl Urine Appearance (Clear) Urine Ketones (Negative) Ur Leukocyte Esterase (Negative) U Hyaline Cast (Auto) (0-2) /lpf U Epithel Cells (Auto) (0-2) /hpf Urine Mucus (None Prsent) Urine Osmolality (500-800) mOsm/kg /06/17 Range/Units 12:14 RBC (4.20-5.40) M/uL Hgb (12.0-16.0) g/dl Hct (37.0-47.0) % MCHC (32.0-36.0) g/dL RDW Std Deviation (36.4-46.3) fL MPV (9.4-12.4) fL Neut # (Auto) (1.40-6.50) K/uL [place] # (Auto) (0.11-0.59) K/uL Sodium 118 L* (136-145) mmol/L Chloride 88 L (98-107) mmol/L Carbon Dioxide (21-32) mmol/L Anion Gap (3-11) Creatinine (0.6-1.2) mg/dl Glucose 154 H (70-99(Fasting)) mg/dl POC Glucose (70-99) mg/dl Osmolality (280-300) mOsm/kg TSH (0.300-4.500) uIu/ml Free T4 (0.61-1.60) ng/dl Urine Appearance (Clear) Urine Ketones (Negative) Ur Leukocyte Esterase (Negative) U Hyaline Cast (Auto) (0-2) /lpf U Epithel Cells (Auto) (0-2) /hpf Urine Mucus (None Prsent) Urine Osmolality (500-800) mOsm/kg PG Care Time/CCT Total # of Minutes Spent Total Time Spent with Patient: Total time spent is greater than 50% in coordination of care (as documented) at patient's floor/unit and/or counseling patient: Coding Level of Care Code 59625 SUB INP/OBS CARE 2/35MIN Diagnoses Hyponatremia E87.1 YARITZA (acute kidney injury) N17.9 Type 2 diabetes mellitus E11.9 HTN (hypertension) I10 Hypothyroidism E03.9 GERD (gastroesophageal reflux disease) K21.9
[2024-04-01] MEDS: SODIUM CHLORIDE 3 % 150 ML IV ONE (14:36)
[2024-04-01 16:36] LABS: Calcium 9.4 mg/dl (8.6-10.3); Potassium 3.9 mmol/L (3.5-5.1)
[2024-04-01 16:41] LABS: Creatinine Clr Calc Pharmacy 52.5 ml/min; Est GFR (African American) 71.2 ml/min; Est GFR (Non-African American) 61.5 ml/min
[2024-04-01] MEDS: PANTOprazole 40 MG TAB PO ONE (22:07)
[2024-04-02 07:00] LABS: Basophils # (auto) 0.01 K/uL (0.00-0.20); Basophils % (auto) 0.1 %; Eosinophils # (auto) 0.01 K/uL (0.00-0.50); Eosinophils % (auto) 0.1 %; Hematocrit (blood only) 32.1 % (37.0-47.0); Hemoglobin 11.5 g/dl (12.0-16.0); Immature Granulocytes # (auto) 0.04 K/uL (0.01-0.20); Immature Granulocytes % (auto) 0.6 %; Lymphocytes # (auto) 1.67 K/uL (1.20-3.40); Lymphocytes % (auto) 24.6 %; Mean Corpuscular Hemoglobin 29.9 pg (25.0-34.0); Mean Corpuscular Hgb Conc 35.8 g/dL (32.0-36.0); Mean Corpuscular Volume 83.4 fL (80.0-100.0); Mean Platelet Volume 9.1 fL (9.4-12.4); Monocytes # (auto) 0.48 K/uL (0.11-0.59); Monocytes % (auto) 7.1 %; Neutrophils # (auto) 4.58 K/uL (1.40-6.50); Neutrophils % (auto) 67.5 %; Platelet Count 252 K/uL (130-400); RDW Coefficient of Variation 12.1 % (11.5-14.5); RDW Standard Deviation 36.6 fL (36.4-46.3); Red Blood Count 3.85 M/uL (4.20-5.40); White Blood Count 6.79 K/ul (4.8-10.8)
[2024-04-02 07:12] LABS: BUN Creatinine Ratio 15.5 (10-20); Calcium 9.6 mg/dl (8.6-10.3); Creatinine Clr Calc Pharmacy 50.8 ml/min; Est GFR (African American) 68.6 ml/min; Est GFR (Non-African American) 59.2 ml/min; Potassium 4.2 mmol/L (3.5-5.1)
[2024-04-02] MEDS: PANTOprazole 40 MG TAB PO SCH (09:28)
--- NOTE | 2024-04-02 10:41 | Nephrology Progress Note ---
Date of Service April 02, 2024 Assessment & Plan (1) Hyponatremia: (2) YARITZA (acute kidney injury): (3) HTN (hypertension): (4) Type 2 diabetes mellitus: (5) Hypothyroidism: Plan 68-year-old female with history of hypertension, diabetes, chronic mild hyponatremia with serum sodium 1 31-1 33, on Ozempic, lisinopril and hydrochlorothiazide, admitted to the hospital with routine outpatient lab showing acute hyponatremia with serum sodium 119. Urine osmolality 450. Received 3% saline overnight and started on oral salt tablet but sodium stayed low at 118. Admission lab was also notable for YARITZA creatinine was 1.4 which rapidly improved down to baseline of 0.9-1.0. Other electrolyte acceptable. Vital signs stable. Hydrochlorothiazide has been on hold since admission. Workup was otherwise unremarkable including chest x-ray, urinalysis renal ultrasound. No personal history of malignancy. Never smoker. Sodium improved to 127. Electrolyte acceptable. Vital signs acceptable and overall otherwise feeling well. --Continue on oral salt tablet 1 g twice a day, repeat serum sodium in the afternoon if sodium remains low, will increase to 2 g twice a day. --In future avoid thiazide type diuretics and consider loop diuretics if needed -- Limit free water intake to less than 1500 mL/day avoid excessive alcohol. -- Hold discharge until we see further improvement in sodium and staying stable. Admission and Anticipated Discharge Date Admission Date: March 31, 2024 Pedro Angel seen and evaluated this morning with her at bedside. Overall she feels well. Vital signs stable. Sodium improved to 127 after repeated infusion of hypertonic saline yesterday for low sodium. Kidney function stable. Other electrolyte acceptable. Review of Systems Review of Systems: Detailed review of system was otherwise unremarkable. Physical Exam Eyes: + anicteric sclerae Neck: trachea midline, no thyromegaly Gastrointestinal (Abdomen): Inspection/Auscultation: abdomen normal to inspection Percussion/Palpation: abdomen soft; abdomen nontender Results & Data Vital Signs (Past 12 Hours) Vital Signs Temp Pulse Pulse Resp BP Pulse Ox O2 Del Method 04/02/24 08:00 36.6 C 75 18 109/74 96 Room Air 04/02/24 07:10 76 04/02/24 02:41 36.5 C 70 17 125/76 97 Room Air 04/01/24 23:04 36.8 C 75 18 126/82 96 Room Air PG Care Time/CCT Total # of Minutes Spent Total Time Spent with Patient: Total time spent is greater than 50% in coordination of care (as documented) at patient's floor/unit and/or counseling patient: Coding Level of Care Code 36215 SUB INP/OBS CARE 2/35MIN Diagnoses Hyponatremia E87.1 YARITZA (acute kidney injury) N17.9 HTN (hypertension) I10 Type 2 diabetes mellitus E11.9 Hypothyroidism E03.9
--- NOTE | 2024-04-02 12:51 | Hospitalist Progress Note ---
Date of Service April 02, 2024 Assessment & Plan (1) Hyponatremia: Plan: Aster is a 68-year-old female with history of type 2 diabetes, hypertension, GERD who presents on referral from outpatient blood work for low sodium level and elevated creatinine. Patient is with polydipsia as outpatient, sodium last 132 09/2023. Asymptomatic severe hyponatremia Patient with polydipsia as outpatient Asymptomatic, was referred to the ER after she had routine outpatient blood work Hydrochlorothiazide held. 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 Avoid excessive alcohol (2) YARITZA (acute kidney injury): Plan: YARITZA No evidence of volume contraction, increased fluid intake Hydrochlorothiazide held Lisinopril held Resolved (3) Type 2 diabetes mellitus: Plan: Metformin held Patient is on weekly Ozempic. Basal bolus deferred. SSI ordered Goal [id number] (4) HTN (hypertension): Plan: HCTZ, lisinopril held for recent YARITZA Blood pressure well-controlled on Norvasc alone (5) Hypothyroidism: Plan: Continue Synthroid. TSH slightly low on admission, free T4 pending (6) GERD (gastroesophageal reflux disease): Plan: Continue PPI Plan DVT prophylaxis: Heparin Disposition: PCU CODE STATUS: Full code Diet: fluid restricted, DM2 Admission and Anticipated Discharge Date Admission Date: March 31, 2024 Subjective Patient feels well. Denies chest pain or shortness of breath. Review of Systems Review of Systems: All systems reviewed & are unremarkable except as noted in Subjective Physical Exam Physical Exam: General: Awake, conversant Heart: S1, S2/regular rate and rhythm, no murmur rubs or gallops Lungs: Clear to auscultation bilaterally. Normal effort Abdomen: Soft/nontender/nondistended. No hepatosplenomegaly Extremities: No clubbing/cyanosis. No edema Behavior: Appropriate, cooperative Results & Data Results & Data Vital Signs (Past 12 Hours) Vital Signs Temp Pulse Pulse Resp BP Pulse Ox O2 Del Method 04/02/24 11:00 36.7 C 87 20 115/68 97 Room Air 04/02/24 08:00 36.6 C 75 18 109/74 96 Room Air 04/02/24 07:10 76 06/09/24 02:41 36.5 C 70 17 125/76 97 Room Air Laboratory Results Abnormal lab results 04/01/24 04/01/24 04/01/24 Range/Units 12:14 16:10 16:35 RBC (4.20-5.40) M/uL Hgb (12.0-16.0) g/dl Hct (37.0-47.0) % MPV (9.4-12.4) fL Sodium 118 L* 121 L (136-145) mmol/L Chloride 88 L 90 L (98-107) mmol/L Glucose 154 H 100 H (70-99(Fasting)) mg/dl POC Glucose 105 H (70-99) mg/dl 04/01/24 04/01/24 04/02/24 Range/Units 20:25 21:32 05:41 RBC 3.85 L (4.20-5.40) M/uL Hgb 11.5 L (12.0-16.0) g/dl Hct 32.1 L (37.0-47.0) % MPV 9.1 L (9.4-12.4) fL Sodium 120 L 127 L (136-145) mmol/L Chloride 97 L (98-107) mmol/L Glucose 112 H (70-99(Fasting)) mg/dl POC Glucose 120 H (70-99) mg/dl 04/02/24 Range/Units 07:33 RBC (4.20-5.40) M/uL Hgb (12.0-16.0) g/dl Hct (37.0-47.0) % MPV (9.4-12.4) fL Sodium (136-145) mmol/L Chloride (98-107) mmol/L Glucose (70-99(Fasting)) mg/dl POC Glucose 107 H (70-99) mg/dl PG Care Time/CCT Total # of Minutes Spent Total Time Spent with Patient: Total time spent is greater than 50% in coordination of care (as documented) at patient's floor/unit and/or counseling patient: Coding Level of Care Code 11055 SUB INP/OBS CARE 2/35MIN Diagnoses Hyponatremia E87.1 YARITZA (acute kidney injury) N17.9 Type 2 diabetes mellitus E11.9 HTN (hypertension) I10 Hypothyroidism E03.9 GERD (gastroesophageal reflux disease) K21.9
[2024-04-02 13:31] LABS: Calcium 9.1 mg/dl (8.6-10.3); Potassium 4.6 mmol/L (3.5-5.1)
[2024-04-02 13:36] LABS: BUN Creatinine Ratio 14.7 (10-20); Creatinine Clr Calc Pharmacy 38.2 ml/min; Est GFR (African American) 48.6 ml/min; Est GFR (Non-African American) 41.9 ml/min
[2024-04-02] MEDS ORDERED: SODIUM CHLORIDE 1 GM TABLET PO SCH (21:00)
[2024-04-02] MEDS: TOLVAPTAN 15 MG TABLET PO STA (21:21)
[2024-04-02] MEDS: SODIUM CHLORIDE 1 GM TABLET PO ONE (21:24)
[2024-04-03 06:48] LABS: Basophils # (auto) 0.02 K/uL (0.00-0.20); Basophils % (auto) 0.3 %; Eosinophils # (auto) 0.04 K/uL (0.00-0.50); Eosinophils % (auto) 0.6 %; Hematocrit (blood only) 31.8 % (37.0-47.0); Hemoglobin 11.3 g/dl (12.0-16.0); Immature Granulocytes # (auto) 0.03 K/uL (0.01-0.20); Immature Granulocytes % (auto) 0.5 %; Lymphocytes # (auto) 1.68 K/uL (1.20-3.40); Lymphocytes % (auto) 25.8 %; Mean Corpuscular Hemoglobin 30.3 pg (25.0-34.0); Mean Corpuscular Hgb Conc 35.5 g/dL (32.0-36.0); Mean Corpuscular Volume 85.3 fL (80.0-100.0); Monocytes # (auto) 0.47 K/uL (0.11-0.59); Monocytes % (auto) 7.2 %; Neutrophils # (auto) 4.28 K/uL (1.40-6.50); Neutrophils % (auto) 65.6 %; Platelet Count 258 K/uL (130-400); RDW Coefficient of Variation 12.5 % (11.5-14.5); RDW Standard Deviation 38.5 fL (36.4-46.3); Red Blood Count 3.73 M/uL (4.20-5.40); White Blood Count 6.52 K/ul (4.8-10.8)
[2024-04-03 07:33] LABS: BUN Creatinine Ratio 16.4 (10-20); Calcium 9.8 mg/dl (8.6-10.3); Creatinine Clr Calc Pharmacy 44.8 ml/min; Est GFR (African American) 58.9 ml/min; Est GFR (Non-African American) 50.8 ml/min; Potassium 4.2 mmol/L (3.5-5.1)
[2024-04-03] MEDS ORDERED: SODIUM CHLORIDE 1 GM TABLET PO SCH ×2 (09:00)
--- NOTE | 2024-04-03 09:27 | Nephrology Progress Note ---
Date of Service April 03, 2024 Assessment & Plan (1) Hyponatremia: (2) YARITZA (acute kidney injury): (3) HTN (hypertension): (4) Type 2 diabetes mellitus: (5) Hypothyroidism: Plan 68-year-old female with history of hypertension, diabetes, chronic mild hyponatremia with serum sodium 1 31-1 33, on Ozempic, lisinopril and hydrochlorothiazide, admitted to the hospital with routine outpatient lab showing acute hyponatremia with serum sodium 119. Urine osmolality 450. Received 3% saline overnight and started on oral salt tablet but sodium stayed low at 118. Admission lab was also notable for YARITZA creatinine was 1.4 which rapidly improved down to baseline of 0.9-1.0. Other electrolyte acceptable. Vital signs stable. Hydrochlorothiazide has been on hold since admission. Workup was otherwise unremarkable including chest x-ray, urinalysis renal ultrasound. No personal history of malignancy. Never smoker. Sodium improved to 133 after 1 dose of tolvaptan last night with repeated drop in sodium, electrolyte acceptable. Vital signs acceptable and overall otherwise feeling well. -- Increase oral salt tablet to 2 g twice a day, repeat serum sodium in the afternoon if sodium remains around 130 or higher, okay to be discharged with close outpatient lab monitoring. If discharged this afternoon she will have lab done tomorrow, then and then early next week to decide on salt tablet dose especially with her plan for upcoming trip. --In future avoid thiazide type diuretics and consider loop diuretics if needed -- Limit free water intake to less than 1500 mL/day avoid excessive alcohol. Admission and Anticipated Discharge Date Admission Date: March 31, 2024 Pedro Angel was seen and evaluated this morning. Overall she feels well. Vital signs stable. Sodium improved to 133 after dropping again yesterday to 125 and received 1 dose of tolvaptan last night. Kidney function stable. Other electrolyte acceptable. Review of Systems Review of Systems: Detailed review of system was otherwise unremarkable. Physical Exam Constitutional: WD/WN, vitals as above no acute distress Eyes: + anicteric sclerae Neck: normal visual inspection Respiratory: Auscultation: lungs clear to auscultation bilaterally Cardiovascular: RRR, no murmur, no edema Skin: no rashes, warm and dry Neurologic: no focal motor deficits and not confused Psychiatric: Orientation: alert and oriented x 3 Results & Data Vital Signs (Past 12 Hours) Vital Signs Temp Pulse Pulse Resp BP Pulse Ox O2 Del Method 04/03/24 07:26 36.4 C L 82 18 118/83 100 Room Air 04/03/24 02:50 36.8 C 83 18 115/71 96 Room Air 04/02/24 22:22 36.6 C 82 18 146/74 H 96 Room Air 04/02/24 22:02 71 PG Care Time/CCT Total # of Minutes Spent Total Time Spent with Patient: Total time spent is greater than 50% in coordination of care (as documented) at patient's floor/unit and/or counseling patient: Coding Level of Care Code 41162 SUB INP/OBS CARE 2/35MIN Diagnoses Hyponatremia E87.1 YARITZA (acute kidney injury) N17.9 HTN (hypertension) I10 Type 2 diabetes mellitus E11.9 Hypothyroidism E03.9
[2024-04-03] MEDS: SODIUM CHLORIDE 1 GM TABLET PO SCH (11:59)
[2024-04-03 14:51] LABS: BUN Creatinine Ratio 11.4 (10-20); Calcium 9.7 mg/dl (8.6-10.3); Creatinine Clr Calc Pharmacy 28.2 ml/min; Est GFR (African American) 33.6 ml/min; Potassium 4.2 mmol/L (3.5-5.1)
--- NOTE | 2024-04-03 15:14 | Hospitalist Progress Note ---
Date of Service April 03, 2024 Assessment & Plan (1) Hyponatremia: Plan: Aster is a 68-year-old female with history of type 2 diabetes, hypertension, GERD who presents on referral from outpatient blood work for low sodium level and elevated creatinine. Patient is with polydipsia as outpatient, sodium last 132 09/2023. Asymptomatic severe hyponatremia Patient with polydipsia as outpatient Asymptomatic, was referred to the ER after she had routine outpatient blood work Hydrochlorothiazide held. 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 Avoid excessive alcohol 04/03 Na 133 this am, repeated 132, but creatinine 1.75 , start IV fluids (2) YARITZA (acute kidney injury): Plan: YARITZA No evidence of volume contraction, increased fluid intake Hydrochlorothiazide held Lisinopril held Resolved creatinine 1.75 start iv fluids (3) Type 2 diabetes mellitus: Plan: Metformin held Patient is on weekly Ozempic. Basal bolus deferred. SSI ordered Goal [id number] (4) HTN (hypertension): Plan: HCTZ, lisinopril held for recent YARITZA Blood pressure well-controlled on Norvasc alone (5) Hypothyroidism: Plan: Continue Synthroid. TSH slightly low on admission, free T4 pending (6) GERD (gastroesophageal reflux disease): Plan: Continue PPI Plan DVT prophylaxis: Heparin Disposition: PCU CODE STATUS: Full code Diet: fluid restricted, DM2 Admission and Anticipated Discharge Date Admission Date: March 31, 2024 Pedro Angel was seen and evaluated this morning. Overall she feels well. Vital signs stable. Sodium improved to 133 after dropping again yesterday to 125 and received 1 dose of tolvaptan last night. Kidney function stable. Other electrolyte acceptable. Review of Systems Review of Systems: All systems reviewed & are unremarkable except as noted in HPI & below Physical Exam Physical Exam: head atraumatic neck supple chest CTA b/l heart S1S2 regular abdomen soft, nt, nd , bs present extremities no edema Results & Data Results & Data Vital Signs (Past 12 Hours) Vital Signs Temp Pulse Resp BP Pulse Ox O2 Del Method 04/03/24 15:05 36.5 C 90 17 112/75 100 Room Air 04/03/24 10:43 36.6 C 92 H 18 142/83 H 98 Room Air 04/03/24 07:26 36.4 C L 82 18 118/83 100 Room Air Laboratory Results Abnormal lab results 04/02/24 04/02/24 04/02/24 Range/Units 16:37 19:13 20:08 RBC (4.20-5.40) M/uL Hgb (12.0-16.0) g/dl Hct (37.0-47.0) % MPV (9.4-12.4) fL Sodium 124 L (136-145) mmol/L Creatinine (0.6-1.2) mg/dl Glucose (70-99(Fasting)) mg/dl POC Glucose 111 H 121 H (70-99) mg/dl 04/03/24 04/03/24 04/03/24 Range/Units 05:50 07:24 14:18 RBC 3.73 L (4.20-5.40) M/uL Hgb 11.3 L (12.0-16.0) g/dl Hct 31.8 L (37.0-47.0) % MPV 9.0 L (9.4-12.4) fL Sodium 133 L D 132 L (136-145) mmol/L Creatinine 1.75 H D (0.6-1.2) mg/dl Glucose 115 H 123 H (70-99(Fasting)) mg/dl POC Glucose 109 H (70-99) mg/dl PG Care Time/CCT Total # of Minutes Spent Total Time Spent with Patient: Total time spent is greater than 50% in coordination of care (as documented) at patient's floor/unit and/or counseling patient: Coding Level of Care Code 38018 SUB INP/OBS CARE 2/35MIN Diagnoses Hyponatremia E87.1 YARITZA (acute kidney injury) N17.9 Type 2 diabetes mellitus E11.9 HTN (hypertension) I10 Hypothyroidism E03.9 GERD (gastroesophageal reflux disease) K21.9
[2024-04-03] MEDS: SODIUM CHLORIDE 0.9% 1,000 ML IV SCH (17:50)
[2024-04-04 06:27] LABS: BUN Creatinine Ratio 16.5 (10-20); Calcium 9.5 mg/dl (8.6-10.3); Creatinine Clr Calc Pharmacy 45.3 ml/min; Est GFR (African American) 59.6 ml/min; Est GFR (Non-African American) 51.4 ml/min; Potassium 4.1 mmol/L (3.5-5.1)
--- NOTE | 2024-04-04 08:16 | Nephrology Progress Note ---
Date of Service April 04, 2024 Assessment & Plan (1) Hyponatremia: (2) YARITZA (acute kidney injury): (3) HTN (hypertension): (4) Type 2 diabetes mellitus: (5) Hypothyroidism: Plan 68-year-old female with history of hypertension, diabetes, chronic mild hyponatremia with serum sodium 1 31-1 33, on Ozempic, lisinopril and hydrochlorothiazide, admitted to the hospital with routine outpatient lab showing acute hyponatremia with serum sodium 119. Urine osmolality 450. Received 3% saline overnight and started on oral salt tablet but sodium stayed low at 118. Admission lab was also notable for YARITZA creatinine was 1.4 which rapidly improved down to baseline of 0.9-1.0. Other electrolyte acceptable. Vital signs stable. Hydrochlorothiazide has been on hold since admission. Workup was otherwise unremarkable including chest x-ray, urinalysis renal ultrasound. No personal history of malignancy. Never smoker. Sodium improved to 135, YARITZA resolved, cr 1.1. Vital signs acceptable and overall otherwise feeling well. --Discharged on oral salt tablet 2 g twice a day, repeat serum sodium in 2 days and in a week. --In future avoid thiazide type diuretics and consider loop diuretics if needed Admission and Anticipated Discharge Date Admission Date: March 31, 2024 Subjective Patient left in the morning before she was seen. Sodium normalized 135, YARITZA resolved, creatinine down to 1.1. Blood pressure is acceptable. Results & Data Vital Signs (Past 12 Hours) Vital Signs Temp Pulse Resp BP BP Pulse Ox O2 Del Method 04/04/24 07:49 36.8 C 86 16 128/74 144/85 H 98 04/04/24 07:33 36.8 C 86 16 144/85 H 98 Room Air 04/04/24 03:36 36.7 C 86 18 147/93 H 97 Room Air 04/03/24 22:06 36.6 C 88 18 147/76 H 98 Room Air PG Care Time/CCT Total # of Minutes Spent Total Time Spent with Patient: Total time spent is greater than 50% in coordination of care (as documented) at patient's floor/unit and/or counseling patient: Coding Level of Care Code 01257 SUB INP/OBS CARE 1/25MIN Diagnoses Hyponatremia E87.1 YARITZA (acute kidney injury) N17.9 HTN (hypertension) I10 Type 2 diabetes mellitus E11.9 Hypothyroidism E03.9
--- NOTE | 2024-04-04 08:54 | Discharge Summary ---
Date of Service April 04, 2024 Admission HPI Per Admitting Provider To proceed at the bedside. She reports she feels well, has had chronic hyponatremia in the past and was following up with outpatient labs when she was directed to go to the ER for very low sodium levels. She reports she feels well and has not felt like she is outside of her normal state of health. Denies fever, chills, sweats. No lightheadedness or dizziness. She has been peeing normally with no hesitancy, increased frequency, oliguria, or difficulty voiding. She drinks 4 to 512 ounce bottles of water a day this has not changed recently. She has no known history of cancer. She has not had any weakness, co nfusion, abdominal pain, nausea/vomiting/diarrhea. She reports her appetite has been slightly decrease since being on Ozempic, but is also not with minimal or poor intake feels she eats normally and has adequate p.o. intake. She is on hydrochlorothiazide which she last took this morning. BSG generally well- controlled last A1c 6.0. Reports she was she did not come into the hospital as she is planning on going on a cruise next week but is aware that her sodium levels are dangerously low and must be corrected slowly. No other questions or concerns at time of bedside visit Medical History: Reviewed Medications: Reviewed Surgical History: Reviewed Family history: Reviewed Allergies: Reviewed Social History: Social ETOH, 0-1 glass of wine per day. No tobacco Code Status: Full Principal Diagnosis hyponatremia YARITZA Discharge Exam head atraumatic neck supple chest CTA b/l heart S1S2 regular abdomen soft, nt, nd , bs present extremities no edema Discharge Data Allergies Allergy/AdvReac Type Severity Reaction Status Date / Time No Known Drug Allergies Allergy Verified 03/07/24 09:11 Consultations 03/31/24 17:49 ED Decision to Admit Stat 04/01/24 07:49 Consult Nephrology Routine Ordered Studies 03/31/24 18:02 US Renal Bladder [US renal/blad retro comp] Stat Hospital Course (1) Hyponatremia: Aster is a 68-year-old female with history of type 2 diabetes, hypertension, GERD who presents on referral from outpatient blood work for low sodium level and elevated creatinine. Patient is with polydipsia as outpatient, sodium last 132 09/2023. Asymptomatic severe hyponatremia Patient with polydipsia as outpatient Asymptomatic, was referred to the ER after she had routine outpatient blood work Hydrochlorothiazide held. 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 Avoid excessive alcohol 04/03 Na 133 this am, repeated 132, but creatinine 1.75 , start IV fluids 04/04 Na 135, cr is normal , patient is stable for discharge, advised to get BMP on (2) YARITZA (acute kidney injury): YARITZA No evidence of volume contraction, increased fluid intake Hydrochlorothiazide held Lisinopril held Resolved creatinine 1.75 start iv fluids 04/04 creatinine normalized, stable for discharge (3) Type 2 diabetes mellitus: Metformin held Patient is on weekly Ozempic. Basal bolus deferred. SSI ordered Goal [id number] (4) HTN (hypertension): HCTZ, lisinopril held for recent YARITZA Blood pressure well-controlled on Norvasc alone (5) Hypothyroidism: Continue Synthroid. TSH slightly low on admission, free T4 pending (6) GERD (gastroesophageal reflux disease): Continue PPI Plan DVT prophylaxis: Heparin Disposition: PCU CODE STATUS: Full code Diet: fluid restricted, DM2 Total Time Total Time Spent Total Time Spent (In Minutes): 35 Discharge Plan Discharge Items Patient Disposition: Home - Self-Care Reason For Visit: HYPONATREMIA, SEVERE, ASYMPTOMATIC Discharge Diagnosis: hyponatremia Activity: Resume your previous activity Non-emergency contact: Primary Care Provider Call non-emergency contact if: you have any medication questions Follow-up/Referrals: Eladio Vela DO [Primary Care Provider] - 04/14/24 11:30 am (Hospital follow up schedule with Dr. Vela on 04/14 at 11:30) Diet: Carb Consistent or DM2 Addtl Attending Provider Instructions: BMP on Pending Studies at Discharge: No Stand-Alone Forms: My [employer], Smoking Cessation Medications and DC Order Prescriptions: New sodium chloride 1,000 mg Tablet,Soluble 2,000 mg PO BID Qty: 10 0RF Continued omeprazole 20 mg capsule,delayed release(DR/EC) 20 mg PO DAILY Qty: 90 3RF semaglutide 1 mg/dose (4 mg/3 mL) pen injector 1 mg subcut .weekly Qty: 3 1RF aspirin [Aspir-Low] 81 mg tablet,delayed release (DR/EC) 81 mg PO DAILY levothyroxine 88 mcg tablet 88 mcg PO DAILY Qty: 90 3RF docusate sodium [Colace] 100 mg capsule 100 mg PO DAILY alendronate 70 mg tablet 70 mg PO .weekly Qty: 13 3RF atorvastatin 10 mg tablet 10 mg PO DAILY Rx Instructions: TAKE 1 TABLET BY MOUTH EVERY DAY amlodipine 10 mg tablet 10 mg PO DAILY Rx Instructions: TAKE 1 TABLET BY MOUTH EVERY DAY Discontinued hydrochlorothiazide 12.5 mg tablet 12.5 mg PO DAILY Qty: 90 3RF metformin 500 mg tablet extended release 24 hr 500 mg PO UD Rx Instructions: last filled 08/2023 lisinopril 30 mg tablet 30 mg PO DAILY Rx Instructions: TAKE 1 TABLET BY MOUTH EVERY MORNING Discharge Orders: Discharge Order (Routine); Ordered 04/04/24 Ordered By: Sapphire Heck Admission Data Admit Date/Time: 03/31/24 18:33 Attending Provider: Sapphire Heck Admit Provider: Kavon Lofton Primary Care Provider: Eladio Vela Other Providers: Kavon Lofton; Suzanne Chau Other Interventions: Discharge Summary Assessment (RN) Last Done: 04/04/24 07:49 Coding Level of Care Code 34344 INP/OBS DISCH >30 MIN Diagnoses Hyponatremia E87.1 YARITZA (acute kidney injury) N17.9 Type 2 diabetes mellitus E11.9 HTN (hypertension) I10 Hypothyroidism E03.9 GERD (gastroesophageal reflux disease) K21.9
== END 2024-04-04 09:30 | disposition home or self-care (01) | DRG 644 ==
LOC: ED 14:05 → 2S 18:33 → SUATTDRO 18:33 → 2S 20:35